=== PATIENT | male | born 1955 | race Caucasian/White ===

== ENCOUNTER 2016-12-03 10:11 | Day surgery (SDC) | payer MEDICARE ==
[~2016-12-03 10:11] MED LIST: Acetaminophen TAB* 325 MG PO PRN; Buffered Lidocaine 0.9% SYRIN* 5 ML/SYR SYRINGE INTRADERM ONE
[2016-12-03] MEDS ORDERED: Phenylephrine IV* 40 MCG/ML 10 ML SYRINGE ONE (12:57)
[2016-12-03] MEDS ORDERED: Propofol* 10 MG/ML 20 ML BTL IV PUSH ONE (12:58)
[2016-12-03] MEDS ORDERED: Lidocaine 2% PF * 5 ML VIAL ONE (12:58)
[2016-12-03] MEDS ORDERED: Ondansetron INJ* 2 MG/ML VIAL ONE (12:58)
[2016-12-03 13:53] VITALS: BP 111/75
[2016-12-03] MEDS ORDERED: Cyclopentolate 1% OPTH.SOL* 2 ML BTL ONE (13:59)
[2016-12-03] MEDS ORDERED: Phenylephrine 2.5% OPTH.SOL* 2 ML BTL ONE (14:00)
[2016-12-03] MEDS ORDERED: Lidocaine 1% MPF* 2 ML VIAL ONE (14:00)
[2016-12-03] MEDS ORDERED: Ketorolac 0.5% OPHTH (NF) 0.5 % 5 ML BTL ONE (14:00)
[2016-12-03] MEDS ORDERED: Buffered Lidocaine 0.9% SYRIN* 5 ML/SYR SYRINGE ONE (14:00)
[2016-12-03] MEDS ORDERED: Neomycin/Polymy/Dex OPHTH.OIN* 3.5 GM ONE (14:00)
[2016-12-03] MEDS ORDERED: Tetracaine 0.5% OPTH.SOL 4 ML* 1 DROP BTL ONE (14:00)
[2016-12-03] MEDS ORDERED: Tropicamide 1% OPTH.SOL* BTL ONE (14:00)
--- NOTE | 2016-12-04 02:34 | OP ---
DATE OF OPERATION: 12/03/16 - [facility] DATE OF : 51 SURGEON: Dr. Barahona. PEN OR PENCIL ASSEMBLY MACHINE OPERATOR: None. ANESTHESIOLOGIST: Omar Michael MD ANESTHESIA: General. PRE-OP DIAGNOSIS: Cataract, left eye, Down's syndrome. POST-OP DIAGNOSIS: Cataract, left eye, Down's syndrome. OPERATIVE PROCEDURE: Phacoemulsification and cataract extraction with posterior chamber intraocular lens implant and planned posterior capsulotomy. COMPLICATIONS: None. BLOOD LOSS: None. DESCRIPTION OF PROCEDURE: The patient was brought to the operating room and received general anesthesia without any complications. He was prepped and draped in the usual sterile fashion for ophthalmic surgery and attention was directed to the left eye where a speculum was placed. A paracentesis was created at the 5 o'clock position and 0.1 cc of 1% preservative-free lidocaine was injected into the anterior chamber followed by DisCoVisc. The eye was digitally stabilized while a 2.75 mm keratome was used to create a triplanar clear corneal incision at the 3 o'clock position. A continuous curvilinear capsulorrhexis was created with a cystotome and Utrata forceps. BSS on a cannula was used to hydrodissect the lens from the capsule. Phacoemulsification was performed in a zlbxuo-kek-gwskhbv technique to create four fragments which were removed. Residual cortical material was removed with irrigation and aspiration. The capsule was polished. Given the relative young age and the difficulty in getting this gentleman to possibly sit for YAG laser capsulotomy in the future, it was decided to purposely create an opening in the posterior capsule. Thus, cystotome was used to emir the posterior capsule and an oval shaped posterior capsulotomy was created. No vitreous presented itself. An AU00T0 23.5 diopter lens was folded and inserted into the capsular bag. The haptic was oriented perpendicular to the slight oval shape of the posterior capsulotomy. Irrigation and aspiration was used to remove viscoelastic from the eye. BSS on a cannula was used to hydrate the corneal stroma and seal the wound. At the end of the case, the pupil was round and the lens was centered and stable. The eye pressure appeared normal. The speculum was removed and topical Maxitrol ointment was placed on the surface of the eye. The eye was closed, patched and shielded and the patient was sent to the recovery room in stable condition with postoperative instructions and followup appointment given. [id number]/[facility] #: [id number] SHARI
== END 2016-12-03 14:06 | disposition home or self-care (01) ==
LOC: OREAST 10:11
PROVIDERS: ATTEND Ophthalmology
DX: H25.12 Age-related nuclear cataract, left eye (principal); Q90.9 Down syndrome, unspecified; G30.9 Alzheimer's disease, unspecified; F02.80 Dementia in other diseases classified elsewhere, unspecified severity, without behavioral disturbance, psychotic disturbance, mood disturbance, and anxiety; J44.9 Chronic obstructive pulmonary disease, unspecified
CPT/HCPCS: A9270-GY; J2405; J2704; V2632

== ENCOUNTER 2016-12-10 12:06 | Day surgery (SDC) | payer MEDICARE ==
[~2016-12-10 12:06] MED LIST changes: +Dexamethasone IV* 4 MG/ML 1 ML (4 MG) IV SLOW PU ONE; +Famotidine IV* 10 MG/ML 2 ML (20 mg) IV ONE
[2016-12-10] MEDS ORDERED: Cyclopentolate 1% OPTH.SOL* 2 ML BTL ONE (13:28)
[2016-12-10] MEDS ORDERED: Buffered Lidocaine 0.9% SYRIN* 5 ML/SYR SYRINGE ONE (13:28)
[2016-12-10] MEDS ORDERED: Lidocaine 1% MPF* 2 ML VIAL ONE (13:28)
[2016-12-10] MEDS ORDERED: Neomycin/Polymy/Dex OPHTH.OIN* 3.5 GM ONE (13:28)
[2016-12-10] MEDS ORDERED: Tetracaine 0.5% OPTH.SOL 4 ML* 1 DROP BTL ONE (13:28)
[2016-12-10] MEDS ORDERED: Ketorolac 0.5% OPHTH (NF) 0.5 % 5 ML BTL ONE (13:28)
[2016-12-10] MEDS ORDERED: Tropicamide 1% OPTH.SOL* BTL ONE (13:28)
[2016-12-10] MEDS ORDERED: Phenylephrine 2.5% OPTH.SOL* 2 ML BTL ONE (13:28)
[2016-12-10] MEDS ORDERED: Dexamethasone IV* 4 MG/ML 1 ML (4 MG) ONE (13:49)
[2016-12-10] MEDS ORDERED: Famotidine IV* 10 MG/ML 2 ML (20 mg) ONE (13:49)
[2016-12-10] MEDS ORDERED: Lidocaine 2% PF * 5 ML VIAL ONE (13:57)
[2016-12-10] MEDS ORDERED: Phenylephrine IV* 40 MCG/ML 10 ML SYRINGE ONE (13:57)
[2016-12-10] MEDS ORDERED: Propofol* 10 MG/ML 20 ML BTL IV PUSH ONE (13:57)
[2016-12-10] MEDS ORDERED: Ondansetron INJ* 2 MG/ML VIAL ONE (14:23)
[2016-12-10 15:53] VITALS: BP 110/66
--- NOTE | 2016-12-11 04:57 | OP ---
DATE OF OPERATION: 12/10/16 [facility] DATE OF : 51 SURGEON: Víctor Barahona MD RADIO REPORTER: None. ANESTHESIOLOGIST: Omar Michael MD ANESTHESIA: General anesthesia. PRE-OP DIAGNOSES: Cataract, right eye; Down syndrome. POST-OP DIAGNOSES: Cataract, right eye; Down syndrome. OPERATIVE PROCEDURE: Phacoemulsification and cataract extraction with posterior chamber intraocular lens implant, right eye. COMPLICATIONS: None. BLOOD LOSS: None. DESCRIPTION OF PROCEDURE: The patient was brought to the operating room and received general anesthesia. A drop of tetracaine was subsequently placed in the right eye. His right eye was prepped and draped in the usual sterile fashion for ophthalmic surgery. A speculum was placed in the right eye. A paracentesis was created at the 11 o'clock position. 0.1 cc of 1% preservative- free lidocaine was injected into the anterior chamber followed by DisCoVisc. The eye was digitally stabilized while a 2.75-mm keratome was used to create a triplanar clear corneal incision at the 9 o'clock position. A continuous curvilinear capsulorrhexis was created with cystotome and Utrata forceps. BSS on a cannula was used to hydrodissect the lens from the capsule. Phacoemulsification was performed in a odrtye-vcv-hegzhoy technique to create four fragments which were removed. Residual cortical material was removed with irrigation and aspiration. DisCoVisc was used to inflate the capsular bag. An AUOOTO 23 diopter lens was folded and inserted into the capsular bag. DisCoVisc was removed using irrigation and aspiration. BSS on a cannula was used to hydrate the corneal stroma and seal the wound. At the end of the case, the pupil was round, the lens was centered and stable, the pressure of the eye appeared normal and wound is water tight. The speculum was removed and topical Maxitrol ointment was placed on the surface of the eye. The eye was closed, patched and shielded, and the patient was sent to the recovery room in stable condition once he was awakened. Postop instructions and followup appointment were given. [id number]/[facility] #: [id number] MTDD
== END 2016-12-10 15:38 | disposition home or self-care (01) ==
LOC: OREAST 12:06
PROVIDERS: ATTEND Ophthalmology
DX: H25.11 Age-related nuclear cataract, right eye (principal); H25.091 Other age-related incipient cataract, right eye; Q90.9 Down syndrome, unspecified; J44.9 Chronic obstructive pulmonary disease, unspecified; Z79.82 Long term (current) use of aspirin; Z96.1 Presence of intraocular lens
CPT/HCPCS: A9270-GY; J1100; J2405; J2704; V2632